=== PATIENT | male | born 1940 | race Caucasian/White ===

== ENCOUNTER 2017-05-12 13:47 | Emergency (ER) | payer MEDICAID, OTHER ==
[~2017-05-12] VITALS: Ht 175.3 cm; Wt 69.4 kg
[~2017-05-12 13:47] MED LIST: ALBU8.5H3 INH; AMLO-147 PO; AZIT250T94 PO; FURO-109 PO; IBUP-1542 PO; SIMV20TA PO
[2017-05-12 13:51] VITALS: Ht 175.3 cm; Wt 69.4 kg
[2017-05-12] MEDS ORDERED: SODIUM CHLORIDE 0.9% 1L BAG IV* STA (16:42)
--- NOTE | 2017-05-12 16:47 | ERD ---
ER Documentation Chief Complaint Chief Complaint fever , cough x 3 weeks HPI This is a 76-year-old man with a past medical history of bronchospasm/bronchitis , previous bouts of pneumonia, hypertension, hyperlipidemia who is presenting with progressive worsening fever and cough for approximately 3 weeks. He endorses intermittent fever over the last several days. He reports a dry cough and feeling of congestion, but it has not been productive. He has not had any sputum clearance. He endorses feeling generally fatigued and achy. When the patient first arrived, she was tachycardic to the 110. He was also febrile to 103F. While in the waiting room, the patient took some sort of cough syrup. His vital signs have since resolved. Patient's symptoms is have also improved. Currently does not feel febrile. He still endorses a cough. The patient has had no headache or vision changes. The patient does not endorse neck or back pain. The patient denies lightheadedness or dizziness. The patient has had no chest pain. The patient denies nausea or vomiting. The patient denies abdominal pain or changes to bowel movements. He does endorse increased urinary frequency and occasional discomfort but no bleeding or burning or pain. The patient has had no focal deficits. The patient has had no weakness or numbness or tingling to the face or extremities. ROS All systems reviewed and are negative except as per history of present illness. Medications Home Meds Reported Medications Lisinopril* (Lisinopril*) 40 Mg Tablet, 40 MG PO DAILY, #30 TAB 05/12/17 Hydrochlorothiazide* (Hydrochlorothiazide*) 25 Mg Tab, 25 MG PO DAILY, #30 TAB 05/12/17 Aspirin* (Aspirin* EC) 81 Mg Tablet.dr, 81 MG PO DAILY, TAB 05/12/17 Simvastatin* (Zocor*) 20 Mg Tablet, 20 MG PO QHS, #30 TAB 06/26/15 Discontinued Reported Medications Amlodipine Besylate* (Amlodipine Besylate*) 10 Mg Tablet, 10 MG PO DAILY, #30 TAB 06/26/15 Discontinued Scripts Albuterol Sulfate* (Proair HFA*) 8.5 Gm Hfa.aer.ad, 2 PUFF INH Q4, #1 INHALER Prov:GILBERTO FAJARDO DO 10/15/15 Azithromycin* (Zithromax*) 250 Mg Tablet, 250 MG PO .ZPACK DIRECTED, #6 TAB TAKE 500 MG (2 TABS) THE FIRST DAY THEN 250 MG (1 TAB) DAYS 2-5 Prov:GILBERTO FAJARDOMegan RIDDLE 10/15/15 Ibuprofen* (Motrin*) 600 Mg Tab, 600 MG PO Q6H Y for PAIN AND OR ELEVATED TEMP, #30 TAB Prov:KAILEY WATSON PA-C 10/11/15 Azithromycin* (Zithromax*) 250 Mg Tablet, 250 MG PO .NasirPAMARY DIRECTED, #6 TAB TAKE 500 MG (2 TABS) THE FIRST DAY THEN 250 MG (1 TAB) DAYS 2-5 Prov:KAILEY WATSON PA-C 10/11/15 Furosemide* (Lasix*) 40 Mg Tablet, 40 MG PO DAILY, #20 TAB Prov:CANDY BRAVO 06/26/15 Allergies Allergies: Coded Allergies: No Known Allergy (Unverified , 05/12/17) PMhx/Soc History of Surgery: Yes (RT EYE, INGUINAL HERNIA ) Anesthesia Reaction: No Hx Neurological Disorder: No Hx Respiratory Disorders: No Hx Cardiac Disorders: Yes (HTN, HYPERLIPIDEMIA ) Hx Psychiatric Problems: No Hx Miscellaneous Medical Probl: No Hx Alcohol Use: Yes (SOCIALLY) Hx Substance Use: No Hx Tobacco Use: No FmHx Family History: No coronary disease, No diabetes Physical Exam Vitals Vital Signs Date Time Temp Pulse Resp B/P Pulse Ox O2 Delivery O2 Flow Rate FiO2 05/12/17 18:44 98.1 97 20 144/71 96 Room Air 05/12/17 17:07 Nasal Cannula 2 05/12/17 17:07 Nasal Cannula 2.0 05/12/17 17:07 98.5 85 20 126/64 Nasal Cannula 2.0 05/12/17 13:51 103.2 118 18 118/62 96 Physical Exam Const: No apparent distress, well-developed, well-nourished Head: Normocephalic, Atraumatic Eyes: Normal Conjunctiva. Extraocular movements intact. Pupils equal, round and reactive to light ENT: Normal External Ears, Nose and Mouth. Neck: Full range of motion. No meningismus. Resp: Clear to auscultation bilaterally, No wheezes, rales or rhonchi Cardio: Regular rate and rhythm. No murmurs, rubs or gallops Abd: Soft, non tender, non distended. Normal bowel sounds Skin: No petechiae or rashes Back: No midline tenderness. No CVA tenderness Ext: No cyanosis, or edema Neur: Awake and alert, oriented 4. Cranial nerves intact. No facial droop. Normal strength, sensation and coordination. Psych: Normal Mood and Affect Result Diagram: 05/12/17 1705 05/12/17 1705 Results 24 hrs Laboratory Tests Test 05/12/17 17:05 05/12/17 18:08 White Blood Count 12.410^3/ul Red Blood Count 4.2610^6/ul Hemoglobin 13.8g/dl Hematocrit 39.9% Mean Corpuscular Volume 93.7fl Mean Corpuscular Hemoglobin 32.4pg Mean Corpuscular Hemoglobin Concent 34.6g/dl Red Cell Distribution Width 12.5% Platelet Count 20019^3/UL Mean Platelet Volume 9.6fl Neutrophils % 75.4% Lymphocytes % 12.1% Monocytes % 11.2% Eosinophils % 0.1% Basophils % 0.5% Nucleated Red Blood Cells % 0.0/100WBC Neutrophils # 9.310^3/ul Lymphocytes # 1.510^3/ul Monocytes # 1.410^3/ul Eosinophils # 0.010^3/ul Basophils # 0.110^3/ul Nucleated Red Blood Cells # 0.010^3/ul Prothrombin Time 15.6Sec Prothrombin Time Ratio 1.2 INR International Normalized Ratio 1.22 Activated Partial Thromboplast Time 32.0Sec Sodium Level 134mmol/L Potassium Level 4.3mmol/L Chloride Level 97mmol/L Carbon Dioxide Level 26mmol/L Anion Gap 15 Blood Urea Nitrogen 25mg/dl Creatinine 1.13mg/dl Glucose Level 116mg/dl Lactic Acid Level 1.0mmol/L Calcium Level 10.6mg/dl Total Bilirubin 0.7mg/dl Direct Bilirubin 0.00mg/dl Indirect Bilirubin 0.7mg/dl Aspartate Amino Transf (AST/SGOT) 139IU/L Alanine Aminotransferase (ALT/SGPT) 113IU/L Alkaline Phosphatase 84IU/L Troponin I 0.013ng/ml Total Protein 8.1g/dl Albumin 4.2g/dl Globulin 3.90g/dl Albumin/Globulin Ratio 1.07 Urine Color YELLOW Urine Clarity SLIGHTLY CLOUDY Urine pH 5.0 Urine Specific Rupert 1.017 Urine Ketones NEGATIVEmg/dL Urine Nitrite NEGATIVEmg/dL Urine Bilirubin NEGATIVEmg/dL Urine Urobilinogen 1+mg/dL Urine Leukocyte Esterase 3+Malena/ul Urine Microscopic RBC 3/HPF Urine Microscopic WBC 21/HPF Urine Squamous Epithelial Cells FEW/HPF Urine Bacteria FEW/HPF Urine Mucus FEW/HPF Urine Hemoglobin 1+mg/dL Urine Glucose NEGATIVEmg/dL Urine Total Protein 1+mg/dl Current Medications Medications (Trade) Dose Ordered Sig/Mini Route PRN Reason Start Time Stop Time Status Last Admin Dose Admin Sodium Chloride 2150 ml 2,150 ml BOLUS OVER 2 HOURS STAT IV* 05/12/17 16:42 05/12/17 16:45 DC 05/12/17 17:22 Ceftriaxone Sodium (Rocephin) 50 ml @ 100 mls/hr ONCE ONCE IVPB 05/12/17 19:00 05/12/17 19:29 05/12/17 18:54 Procedures/MDM MDM The patient's presentation warrants further investigation. The patient's primary complaint is a cough with flulike symptoms. An infectious workup will be performed. The patient was initially tachycardic and febrile. A sepsis workup will be performed. LABS The patient's blood work was obtained and reviewed. The patient's CBC shows leukocytosis and left shift. The patient was febrile and there is a possibility of infection. At this time, the patient is afebrile with a normal heart rate and is well-appearing. The patient's lactic acid is within normal limits. I do not suspect severe sepsis. The patient is mildly anemic today, but this does not require emergent treatment. The patient's platelet count is unremarkable. The patient's CMP shows no signs of metabolic or electrolyte emergencies. The patient does have a mild hyponatremia that does not need to be emergently treated but he will benefit from IV fluids. The patient's BUN is also mildly elevated. The patient may be mildly dehydrated, which should also improve with IV fluids. The patient does have a mild transaminitis, which could be reactive. The patient does not have any diarrhea symptoms, and I have decreased suspicion for viral hepatitis. The patient has unremarkable renal function testing. The patient's rapid flu testing is negative. The patient's urinalysis shows signs consistent with a urinary tract infection. EKG EKG read by me: Rate/Rhythm: Regular rate and rhythm at a rate of 83 bpm Intervals: Normal [place]: Left shifted Impression: No evidence of acute ischemia or arrhythmia IMAGING FINDINGS: Heart size is enlarged with normal pulmonary vascularity. No focal infiltrates or pneumothorax noted. IMPRESSION: No acute process noted radiographically Electronically viewed and signed by Jacquie Stewart Physician on 05/12/2017 17: 39 TREATMENT/DISPOSITION The patient's symptoms are consistent with bronchitis. He has been having symptoms for over 2 weeks, and I am concerned of a bacterial infection. He also has a urinary tract infection. She was given Rocephin in the emergency department. The patient will be sent home with antibiotics for possible infectious bronchitis. I will send the patient home with a prescription for Levaquin, which should cover for urinary tract infection and pneumonia. A urine culture will be sent off, the patient will be notified if a change in antibiotic regimen needs to be completed. The patient was given IV fluids in the emergency department with improvement of his symptoms. The patient reportedly treated himself with a cough syrup prior to evaluation. His tachycardia and fever resolved prior to evaluation. His lactic acid is within normal limits. While he does have signs of a systemic inflammatory response, I have low suspicion for severe sepsis at this time. I do not feel that he requires inpatient admission at this time given how well- appearing he currently appears with resolution of his normal vital signs. At this time, I feel that the patient stable for discharge. The patient will need follow-up with his primary care physician in 2-3 days. The patient will be given strict precautions with which to return to the emergency department. The patient's blood pressure was elevated at greater than 120/80 while in the emergency department. The patient was otherwise stable with no evidence of hypertensive urgency or emergency or end organ damage. The patient does not require admission for blood pressure control. I have discussed with the patient the risks of hypertension. I have advised the patient to follow up with the primary care physician for outpatient monitoring and treatment for hypertension in 2-3 days. I have instructed the patient to return to the ER for any new or worsening symptoms including chest pain, shortness of breath, headache, blurred vision, confusion, nausea, vomiting or LOC. Disclaimer: Inadvertent spelling and grammatical errors are likely due to EHR/ dictation software use and do not reflect on the overall quality of patient care. Note that the electronic time recorded on this note does not necessarily reflect the actual time of the patient encounter. Departure Diagnosis: Primary Impression: Cough Additional Impressions: Bronchitis UTI (urinary tract infection) Urinary tract infection type: acute cystitis Hematuria presence: without hematuria Qualified Code: N30.00 - Acute cystitis without hematuria Fever Fever type: unspecified Qualified Code: R50.9 - Fever, unspecified fever cause Leukocytosis Leukocytosis type: unspecified Qualified Code: D72.829 - Leukocytosis, unspecified type Tachycardia Hyponatremia Elevated BUN Dehydration Anemia Condition: Stable BREANNA BUTTS MD May 12, 2017 16:46
[2017-05-12 17:29] LABS: BASOPHIL # 0.1 10^3/ul (0.0-0.1); BASOPHILS % 0.5 % (0.0-2.0); EOSINOPHILS % 0.1 % (0.0-7.0); HEMATOCRIT 39.9 % (42.0-52.0); HEMOGLOBIN 13.8 g/dl (14.0-18.0); LYMPHOCYTES # 1.5 10^3/ul (0.8-2.9); LYMPHOCYTES % 12.1 % (15.0-51.0); MEAN CORPUSCULAR HEMOGLOBIN 32.4 pg (29.0-33.0); MEAN CORPUSCULAR HGB CONC 34.6 g/dl (32.0-37.0); MEAN CORPUSCULAR VOLUME 93.7 fl (82.0-101.0); MEAN PLATELET VOLUME 9.6 fl (7.4-10.4); MONOCYTE # 1.4 10^3/ul (0.3-0.9); MONOCYTES % 11.2 % (0.0-11.0); NEUTROPHIL # 9.3 10^3/ul (1.6-7.5); NEUTROPHILS % 75.4 % (39.0-77.0); PLATELET COUNT 208 10^3/UL (140-415); RED BLOOD COUNT 4.26 10^6/ul (4.70-6.10); RED CELL DISTRIBUTION WIDTH 12.5 % (11.5-14.5); WHITE BLOOD COUNT 12.4 10^3/ul (4.8-10.8)
--- NOTE | 2017-05-12 17:39 | RADRPT ---
PROCEDURE: CHEST X-RAY CLINICAL INDICATION: Possible sepsis TECHNIQUE: Portable one-view COMPARISON: 10/15/2015 FINDINGS: Heart size is enlarged with normal pulmonary vascularity. No focal infiltrates or pneumothorax noted . IMPRESSION: No acute process noted radiographically RPTAT: [facility] Physician Catrina Date Time Electronically viewed and signed by Jacquie Stewart Physician on 05/12/2017 17:39 MB/
[2017-05-12] MEDS ORDERED: ASPI-664 PO (17:46)
[2017-05-12] MEDS ORDERED: LISI40TA9 PO (17:47)
[2017-05-12] MEDS ORDERED: HYDR25TA6 PO (17:47)
[2017-05-12 18:00] LABS: INR 1.22; PROTIME 15.6 Sec (11.9-14.9); PT RATIO 1.2
[2017-05-12 18:04] LABS: ALBUMIN 4.2 g/dl (3.3-4.9); ALBUMIN/GLOBULIN RATIO 1.07; BILIRUBIN,INDIRECT 0.7 mg/dl (0-1.1); BILIRUBIN,TOTAL 0.7 mg/dl (0.2-1.3); CALCIUM 10.6 mg/dl (8.4-10.2); CREATININE 1.13 mg/dl (0.61-1.24); POTASSIUM 4.3 mmol/L (3.5-5.1); TOTAL PROTEIN 8.1 g/dl (6.1-8.1)
[2017-05-12 18:15] LABS: TROPONIN-I 0.013 ng/ml (0.00-0.12)
[2017-05-12 18:21] LABS: ADD UMIC YES; UR ASCORBIC ACID NEGATIVE (NEGATIVE); UR BACTERIA FEW /HPF (NONE SEEN); UR BILIRUBIN (Dip) NEGATIVE (NEGATIVE); UR BLOOD (Dip) 1+ mg/dL (NEGATIVE); UR CLARITY SLIGHTLY CLOUDY (CLEAR); UR COLOR YELLOW (YELLOW); UR GLUCOSE (Dip) NEGATIVE (NEGATIVE); UR KETONES (Dip) NEGATIVE (NEGATIVE); UR LEUKOCYTE ESTERASE (Dip) 3+ Leu/ul (NEGATIVE); UR MUCUS FEW /HPF (NONE SEEN); UR NITRITE (Dip) NEGATIVE (NEGATIVE); UR RBC 3 /HPF (0-5); UR SPECIFIC GRAVITY (Dip) 1.017 (1.003-1.030); UR SQUAMOUS EPITHELIAL CELL FEW /HPF (FEW); UR TOTAL PROTEIN (Dip) 1+ mg/dl (NEGATIVE); UR UROBILINOGEN (Dip) 1+ mg/dL (NEGATIVE)
[2017-05-12 18:44] VITALS: BP 144/71; PULSE 97; RESP 20; TEMP 98.1
[2017-05-12] MEDS ORDERED: CEFTRIAXONE 1 GM/50 ML (PMX) 50 ML IVPB ONE (19:00)
[2017-05-12] MEDS ORDERED: LEVO750T25 PO (19:23)
== END 2017-05-12 19:34 | disposition home or self-care (01) ==
LOC: E/R 13:47
DX: N39.0 Urinary tract infection, site not specified (principal); D72.829 Elevated white blood cell count, unspecified; E86.0 Dehydration; D64.9 Anemia, unspecified; E87.1 Hypo-osmolality and hyponatremia; J20.9 Acute bronchitis, unspecified; I10 Essential (primary) hypertension; R06.02 Shortness of breath; Z79.82 Long term (current) use of aspirin
CPT/HCPCS: 71010; 80053; 81001; 83605; 84484; 85025; 85610; 85730; 87040; 87086; 87400; 93005; 96374; J0696; J7030; Z7502

== ENCOUNTER 2017-11-03 10:50 | Inpatient (IN) | END 2017-11-04 11:00 | disposition home or self-care (01) | DRG 87 ==

== ENCOUNTER 2017-11-06 17:27 | Emergency (ER) | END 2017-11-06 20:11 | disposition home or self-care (01) ==

== ENCOUNTER 2017-11-17 01:38 | Inpatient (IN) | END 2017-11-18 16:14 | disposition home or self-care (01) | DRG 87 ==

== ENCOUNTER 2017-11-23 15:21 | Outpatient (CLI) | END 2017-11-23 17:04 | disposition home or self-care (01) ==

== ENCOUNTER 2017-12-07 16:08 | Outpatient (CLI) | END 2017-12-07 16:27 | disposition home or self-care (01) ==